=== PATIENT | male | born 1995 | race Caucasian/White ===

== ENCOUNTER 2019-11-29 13:59 | Emergency (ER) | payer OTHER, BC ==
[~2019-11-29] VITALS: Ht 167.6 cm; Wt 63.0 kg
[2019-11-29] MEDS ORDERED: CEPHALEXIN500 M1 PO (16:29)
[2019-11-29 16:40] VITALS: BP 138/77
== END 2019-11-29 16:40 | disposition home or self-care (01) | DRG 605 ==
LOC: ED 13:59
PROC: 0HQFXZZ Repair Right Hand Skin, External Approach (ICD-10-PCS; principal; 2019-11-29)
DX: S61.214A Laceration without foreign body of right ring finger without damage to nail, initial encounter (principal); W26.8XXA Contact with other sharp object(s), not elsewhere classified, initial encounter; Y93.89 Activity, other specified; Y99.0 Civilian activity done for income or pay